=== PATIENT | male | born 1985 | race Hispanic/Latino ===

== ENCOUNTER 2017-12-19 11:47 | Outpatient (CLI) | payer OTHER ==
--- NOTE | 2017-12-19 15:54 | PET ---
PET CT: HISTORY: 32-year-old male with Stage IV Hodgkin's lymphoma. Status post last chemotherapy in June 2016. Exam requested for restaging. TECHNIQUE: PET scanning with CT attenuation correction was performed from the base of the brain through the prox imal thighs following the intravenous administration of 10.9 mCi [id number] in the right antecubital fos sa. Imaging was performed after an uptake interval of 62 minutes. COMPARISON: None. CORRELATION: None. FINDINGS: No hypermetabolic lymph nodes are seen in the neck, chest, axilla, abdomen, pelvis, or inguinal regio ns. No hypermetabolic pulmonary nodules, liver, adrenal, or skeletal lesions are seen. There is physiologic activity in the GI and tracts, and the visualized portions of the brain and t he heart. The CT scan used for attenuation correction demonstrates no evidence of pleural effusions or ascites. IMPRESSION: No evidence of viable lymphoma. POS: [facility]
== END 2017-12-19 11:48 | disposition home or self-care (01) ==
LOC: PET 11:47
PROVIDERS: ATTEND Internal Medicine Medical Oncology
DX: C85.90 Non-Hodgkin lymphoma, unspecified, unspecified site (principal)
CPT/HCPCS: 78815; A9552

== ENCOUNTER 2018-06-06 11:16 | Emergency (ER) | payer OTHER ==
--- NOTE | 2018-06-06 12:14 | RAD ---
LEFT ANKLE 3 VIEWS: HISTORY: Injury. Fall out of truck. COMPARISON: None. FINDINGS: There is extensive lateral malleolar soft tissue swelling. No acute displaced fracture or malalignme nt. A small dorsal calcaneal spur is present. IMPRESSION: Extensive lateral soft tissue swelling. POS: [facility]
== END 2018-06-06 12:23 | disposition home or self-care (01) ==
LOC: ERS 11:16
DX: S93.402A Sprain of unspecified ligament of left ankle, initial encounter (principal); F41.9 Anxiety disorder, unspecified; V87.8XXA Person injured in other specified noncollision transport accidents involving motor vehicle (traffic), initial encounter